=== PATIENT | female | born 1965 | race Caucasian/White ===

== ENCOUNTER → 2019-01-01 | Outpatient (CLI) | payer BC ==
--- NOTE | 2019-01-01 17:16 | PCVCIMAG ---
APPROVED REPORT Study performed: 01/01/2019 15:48:15 Exam: Stress Echocardiogram Indication: Chest pain , Hypertension Patient Location: Echo lab Stress Nurse: Makenna Dewitt RN Room #: 2 Status: routine Ht: 5 ft 3 in HR: 98 bpm BP: 182/88 mmHg Rhythm: NSR Medical History Medical History: HTN Cardiac Risk Factors: HTN, Previous Cardiac Procedures: none Pretest Chest Pain Characteristics: Non-exertional Chest pain x a week Exercise History: Physically active Procedure The patient underwent an Exercise Stress Test using the Pilo Protocol. Blood pressure, heart rate, and EKG were monitored. An Echocardiogram was performed by er medical technician in four stages in quad fashion. At peak stress, four selected images were obtained and placed side by side with resting images for comparison. Stress Test Details Stress Test: Exercise stress testing was performed using a Pilo protocol. HR Resting HR: 98 bpmMax Heart Rate (APMHR): 166 bpm Max HR Achieved: 162 bpmTarget HR (85% APMHR): 141 bpm % of APMHR: 97 Recovery HR: 106 bpm HR response to stress: Normal HR response to stress BP Resting BP: 182/88 mmHg Max BP: 202/92 mmHg Recovery BP: 168/88 mmHg BP response to stress: Hypertensive at rest,normal rate of increase per stage ECG Resting ECG: Sinus Rhythm Stress ECG: Sinus Rhythm ST Change: Non-ischemic Arrhythmia: Rare PVCs Recovery ECG: Sinus Rhythm Recovery ST Change: Non-ischemic Recovery Arrhythmia: None Clinical Reason for Termination: Maximal effort Stress Symptoms: chest pain x 1 week,no change with exercise or inspiration Exercise duration: 6 min 32 sec Highest Stage Achieved: Stage 3: 3.4 mph at 14% grade. Exercise capacity: 8.7 METs Overall Exercise Capacity for Age: Poor Scale: Active Angina Score: Non-Limiting No complications. Stress ECG Conclusion The patient exercised according to the PILO protocol for 6:32 mins; achieving a work level of 8.7 METS. The resting heart rate of 98bpm sandy to a maximum heart rate of 162 bpm. This value represent 97% of the maximal, age-predicted heart rate. The resting blood pressure of 182/88 mmHg, sandy to a maximum blood pressure of 202/92 mmHg. The exercise test was stopped due to fatigue . Pre-Stress Echo The resting Echocardiogram showed normal left ventricular contractility with an estimated Ejection Fraction of about 55-60%. Normal wall motion in all segments on baseline images. Post-Stress Echo The stress Echocardiogram showed normal left ventricular contractility with an estimated Ejection Fraction of about 65-70%. Normal augmentation of wall motion in all segments on post stress images. Clinical No clinical or ECG evidence for ischemia. Conclusion Clinical Response: Non-ischemic Exercise Capacity: Below Average Stress ECG Response: Non-ischemic Stress Echo Images: Non-ischemic No clinical, EKG or echocardiographic evidence for ischemia. Mild left ventricular hypertrophy is seen. No echocardiographic evidence for exercise induced ischemia. Normal stress echocardiogram with maximal exercise stress. No prior study available for comparison. <Conclusion> No clinical, EKG or echocardiographic evidence for ischemia. Mild left ventricular hypertrophy is seen. No echocardiographic evidence for exercise induced ischemia. Normal stress echocardiogram with maximal exercise stress.
== END | disposition home or self-care (01) ==
LOC: PCVCIMAG 15:12
PROVIDERS: ATTEND Family Medicine
DX: R07.9 Chest pain, unspecified (principal); I10 Essential (primary) hypertension
CPT/HCPCS: 93325; 93351

== ENCOUNTER → 2019-01-06 | Outpatient (CLI) | payer BC ==
--- NOTE | 2019-01-06 14:52 | PCVCIMAG ---
EXAM: BILATERAL RENAL ULTRASOUND AND BILATERAL RENAL DUPLEX INDICATION: Hypertension FINDINGS: Right kidney: Length measures 10.8 cm. No hydronephrosis or extensive renal scarring. Right renal duplex: Adequate technical quality. No sonographic evidence of renal artery stenosis. The aortic to renal artery ratio is 1.1. The renal vein is patent. Left kidney: Length measures 11.4 cm. No hydronephrosis or extensive renal scarring. Left renal duplex: Adequate technical quality. No sonographic evidence of renal artery stenosis. The aortic to renal artery ratio is 2.0. The renal vein is patent. Bladder: No obvious abnormalities. IMPRESSION: No significant renal artery stenosis. No hydronephrosis bilaterally. LOC:[place] [id number]
== END | disposition home or self-care (01) ==
LOC: PCVCIMAG 10:49
PROVIDERS: ATTEND Internal Medicine Cardiovascular Disease
DX: I10 Essential (primary) hypertension (principal)
CPT/HCPCS: 76770; 93975